=== PATIENT | male | born 1985 | race Caucasian/White ===

== ENCOUNTER 2019-01-03 09:19 | Emergency (ER) | payer OTHER ==
[2019-01-03 10:13] LABS: Mean Corpuscular HGB CONC 33.3 g/dL (32.0-36.0); Mean Corpuscular Hemoglobin 30.9 pg (27.0-31.0); Mean Corpuscular Volume 92.7 fL (78.0-98.0); Mean Platelet Volume 8.5 fL (7.4-10.4); Platelet Count 213 thou/uL (130-400); RBC Distribution Width 12.7 % (11.5-14.5); Red Blood Cell (RBC) Count 4.53 mill/uL (4.70-6.10); White Blood Cell (WBC) Count 5.5 thou/uL (4.8-10.8)
--- NOTE | 2019-01-03 10:17 | RAD ---
Exam: Chest one view HISTORY:Chest pain Comparison: No FINDINGS: Cardiac silhouette: Normal Aorta: Unremarkable Pulmonary vessels: Normal Costophrenic angles: Clear LUNGS: No masses or consolidation. Pneumothorax: None Osseous abnormalities: None IMPRESSION: No acute cardiopulmonary process.
[2019-01-03 10:27] LABS: ALT (SGPT) 35 U/L (8-55); AST (SGOT) 21 U/L (5-34); Albumin 4.3 g/dL (3.5-5.0); Alkaline Phosphatase 42 U/L (40-110); Anion Gap 9 mmol/L (10-20); BUN (Urea Nitrogen) 12 mg/dL (8.9-20.6); Bilirubin, Total 0.2 mg/dL (0.2-1.2); Calc. Creatinine Clearance 0 mL/min (70-130); Calcium 9.2 mg/dL (7.8-10.44); Carbon Dioxide 28 mmol/L (22-29); Chloride 106 mmol/L (98-107); Estimated GFR-MDRD Greater than 90; Globulin 2.1 g/dL (2.4-3.5); Glucose 82 mg/dL (70-105); Lipase 56 U/L (8-78); Potassium 4.3 mmol/L (3.5-5.1); Protein, Total 6.4 g/dL (6.0-8.3); Sodium 139 mmol/L (136-145)
[2019-01-03 10:37] LABS: Band 2 % (5-11); Eosinophils 1 % (0-10); Lymphocytes 22 % (21-51); MDiff Complete? YES; Monocytes 3 % (0-10); Neutrophil 70 % (42-75); RBC Morphology Normal; Reactive Lymphocytes 2 % (0-10)
[2019-01-03 13:33] LABS: CKMB 0.7 ng/mL (0-6.6)
[2019-01-03] MEDS ORDERED: Nitroglycerin 2% Ointment 1 INCH/1 GM Packet ONE (17:18)
[2019-01-03] MEDS ORDERED: Enoxaparin Sodium 100 MG/ML SYRINGE ONE (17:18)
== END 2019-01-04 02:21 | disposition short-term general hospital (02) ==
LOC: ERS 09:19
DX: R07.9 Chest pain, unspecified (principal)
CPT/HCPCS: 36415; 71045; 80053; 82553; 83690; 84484; 85025; 85379; 93005; J1650

== ENCOUNTER 2019-01-08 21:47 | Emergency (ER) | payer OTHER ==
--- NOTE | 2019-01-08 22:22 | RAD ---
PORTABLE CHEST ONE VIEW: 01/08/2019 10:04 p.m. HISTORY: Chest pain. COMPARISON: 01/03/2019 FINDINGS: The heart size is normal. The lungs are expanded without focal areas of consolidation, pneumothoraces or pleural effusions. There is air under the right hemidiaphragm which is likely within the colon. If there is concern for free air, a dedicated CT scan of the abdomen would be helpful. POS: OFF
[2019-01-08 22:23] LABS: #Basophils 0.1 thou/uL (0.0-0.2); #Eosinphils 0.1 thou/uL (0.0-0.7); #Lymphocytes 2.3 thou/uL (1.20-3.40); #Monocytes 0.4 thou/uL (0.11-0.59); #Neutrophils 2.1 thou/uL (1.40-6.50); %Basophils 1.5 % (0.0-1.0); %Eosinophils 1.6 % (0.0-10.0); %Lymphocytes 46.3 % (21.0-51.0); %Monocytes 8.6 % (0.0-10.0); Hemoglobin 13.2 g/dL (14.0-18.0); Mean Corpuscular HGB CONC 33.3 g/dL (32.0-36.0); Mean Corpuscular Hemoglobin 30.7 pg (27.0-31.0); Mean Corpuscular Volume 92.2 fL (78.0-98.0); Mean Platelet Volume 8.7 fL (7.4-10.4); Platelet Count 221 thou/uL (130-400); RBC Distribution Width 12.5 % (11.5-14.5); Red Blood Cell (RBC) Count 4.32 mill/uL (4.70-6.10)
[2019-01-08 22:44] LABS: ALT (SGPT) 44 U/L (8-55); AST (SGOT) 24 U/L (5-34); Albumin 4.3 g/dL (3.5-5.0); Alkaline Phosphatase 40 U/L (40-110); Anion Gap 10 mmol/L (10-20); BUN (Urea Nitrogen) 12 mg/dL (8.9-20.6); Bilirubin, Total 0.3 mg/dL (0.2-1.2); Calc. Creatinine Clearance 0 mL/min (70-130); Calcium 9.1 mg/dL (7.8-10.44); Carbon Dioxide 29 mmol/L (22-29); Chloride 104 mmol/L (98-107); Estimated GFR-MDRD Greater than 90; Globulin 2.4 g/dL (2.4-3.5); Glucose 83 mg/dL (70-105); Potassium 3.8 mmol/L (3.5-5.1); Protein, Total 6.7 g/dL (6.0-8.3); Sodium 139 mmol/L (136-145)
[2019-01-09] MEDS ORDERED: Morphine 2 MG/ML SYRINGE ONE (01:13)
[2019-01-09] MEDS ORDERED: Ondansetron PF 4 MG/2 ML Vial ONE (01:13)
== END 2019-01-09 02:21 ==
LOC: EEVIPCON 21:47 → ERS 21:47
DX: R07.9 Chest pain, unspecified (principal); F20.9 Schizophrenia, unspecified
CPT/HCPCS: 36415; 71045; 80053; 84484; 85025; 93005; 96374; 96375; J2270; J2405

== ENCOUNTER 2019-03-17 19:45 | Observation (INO) | payer OTHER ==
[~2019-03-17 19:45] MED LIST: Iopamidol-370 76% 500 ML 1 ML ONE
[2019-03-17] MEDS ORDERED: Aspirin Chewable 81 MG TAB ONE (20:09)
[2019-03-17 20:28] LABS: #Basophils 0.1 thou/uL (0.0-0.2); #Lymphocytes 2.3 thou/uL (1.20-3.40); #Monocytes 0.5 thou/uL (0.11-0.59); #Neutrophils 2.4 thou/uL (1.40-6.50); %Basophils 1.1 % (0.0-1.0); %Eosinophils 0.6 % (0.0-10.0); %Lymphocytes 43.5 % (21.0-51.0); %Monocytes 9.5 % (0.0-10.0); %Neutrophils 45.4 % (42.0-75.0); Hemoglobin 14.6 g/dL (14.0-18.0); Mean Corpuscular HGB CONC 32.6 g/dL (32.0-36.0); Mean Corpuscular Hemoglobin 30.7 pg (27.0-31.0); Mean Corpuscular Volume 94.2 fL (78.0-98.0); Mean Platelet Volume 8.6 fL (7.4-10.4); Platelet Count 310 thou/uL (130-400); RBC Distribution Width 12.8 % (11.5-14.5); Red Blood Cell (RBC) Count 4.74 mill/uL (4.70-6.10); White Blood Cell (WBC) Count 5.3 thou/uL (4.8-10.8)
--- NOTE | 2019-03-17 20:37 | RAD ---
Chest AP view INDICATION: Chest pain COMPARISON: January 08, 2019 FINDINGS: Lungs:The lungs are clear Cardiac silhouette:The cardiomediastinal silhouette appears within normal limits. Pulmonary vasculature:Normal Pleural spaces:No pleural effusion or pneumothorax is demonstrated. Upper abdomen:No abnormality seen. Osseous structures: No acute osseous abnormality. Additional findings:None. IMPRESSION: No acute cardiopulmonary abnormality.
[2019-03-17 20:47] LABS: ALT (SGPT) 60 U/L (8-55); AST (SGOT) 22 U/L (5-34); Albumin 4.4 g/dL (3.5-5.0); Alkaline Phosphatase 41 U/L (40-110); Anion Gap 11 mmol/L (10-20); BUN (Urea Nitrogen) 14 mg/dL (8.9-20.6); Bilirubin, Total 0.3 mg/dL (0.2-1.2); Calc. Creatinine Clearance 0 mL/min (70-130); Calcium 9.1 mg/dL (7.8-10.44); Carbon Dioxide 28 mmol/L (22-29); Chloride 105 mmol/L (98-107); Estimated GFR-MDRD Greater than 90; Globulin 2.6 g/dL (2.4-3.5); Glucose 83 mg/dL (70-105); Potassium 4.5 mmol/L (3.5-5.1); Sodium 139 mmol/L (136-145)
--- NOTE | 2019-03-17 20:52 | CT ---
CT ANGIOGRAM OF BRAIN WITH AND WITHOUT CONTRAST: DATE: 03/17/2019 8:20 PM HISTORY: 33-year-old male with bipolar disorder and schizophrenia with dizziness and double vision COMPARISON: None. TECHNIQUE: Noncontrast brain CT performed. Iodinated IV contrast injected. Bolus chasing technique scan performed through the head. Coronal and sagittal 3-D MIP reconstructions. FINDINGS: NONCONTRAST CT OF BRAIN: Hemorrhage: None Ishemia/Infarction: None. Midline Shift: None. Hydrocephalus: None. Skull and Extracranial Soft tissues: There is complete opacification of the left maxillary sinus. CTA OF THE BRAIN: Right ICA: Patent. Right MCA: Patent. Right SRUTHI: Patent. ACOM: There is a 1.8 mm aneurysm off the inferior aspect of the anterior communicating artery on ariel ge 40 of the coronal series and image 78 and 77 of the axial series. Left ICA: Patent. Left MCA: Patent. Left SRUTHI: Patent. PCOMs: Patent. Vertebral arteries: Patent. Basilar Artery: Patent. director clinical applications: Patent. Incidentals: No abnormal enhancement1 IMPRESSION: No acute intracranial abnormality. No hemodynamically significant stenosis or occlusion. Incidental 1.8 mm aneurysm off the anterior communicating artery. Complete opacification of the left maxillary sinus.
[2019-03-18] MEDS ORDERED: Ondansetron PF 4 MG/2 ML Vial IVP PRN (01:28)
[2019-03-18] MEDS ORDERED: Ondansetron ODT 4 MG TAB PO PRN (01:28)
[2019-03-18] MEDS ORDERED: Calcium Carbonate 500 MG ChewTAB PO PRN (01:28)
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
[2019-03-18 02:33] VITALS: BMI 35.8
[2019-03-18 04:12] LABS: Carbamazepine-Tegretol 9.1 ug/mL (4.0-12.0)
[2019-03-18] MEDS: Meclizine HCl 25 MG TAB PO SCH ×3 (05:29→22:07)
[2019-03-18] MEDS: Nitroglycerin 0.4 MG TAB (25 Tab Bottle) PO PRN ×4 (08:29→22:11)
[2019-03-18] MEDS: Acetaminophen 325 MG TAB PO PRN (08:29)
[2019-03-18] MEDS: carBAMazepine 200 MG TAB PO SCH (09:07)
[2019-03-18] MEDS: Aspirin 81 mg Enteric Coated Tablet PO SCH (09:07)
[2019-03-18] MEDS ORDERED: Morphine 4 MG/ML VIAL IV SCH (10:00)
[2019-03-18] MEDS ORDERED: Scopolamine 1.5 mg/72 hour Patch TD SCH ×2 (10:00→17:30)
[2019-03-18] MEDS ORDERED: Ketorolac Tromethamine 30 MG/ML VIAL IVP SCH (12:45)
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
--- NOTE | 2019-03-18 14:37 | PDOC.HOSPP ---
- Subjective Encounter Date: 03/18/19 Encounter Time: 10:00 Subjective: Pt seen for followup re; chest pain. c/o L sided chest pain, vertigo. - Objective Vital Signs & Weight: Vital Signs (12 hours) Temp Pulse Resp BP Pulse Ox 03/18/19 09:00 97.5 F L 74 15 124/83 94 L 03/18/19 06:29 78 18 121/79 96 03/18/19 03:18 97.8 F 88 20 112/69 93 L Weight Weight 242 lb 12.8 oz I&O: 03/17/19 03/18/19 03/19/19 06:59 06:59 06:59 Intake Total 350 1 Balance 350 1 Result Diagrams: 03/17/19 20:20 03/17/19 20:20 Additional Labs: Labs and MARs reviewed by me EKG Reviewed by me: Yes (Tele; NSR) Hospitalist ROS - Review of Systems Constitutional: denies: fever, chills, sweats, weakness, malaise Respiratory: denies: cough, shortness of breath, SOB with excertion, pleuritic pain, wheezing Cardiovascular: reports: chest pain. denies: palpitations, orthopnea, paroxysmal noc. dyspnea, edema, light headedness Gastrointestinal: denies: nausea, vomiting, abdominal pain, diarrhea, constipation, melena, hematochezia Genitourinary: denies: dysuria, frequency, incontinence, hematuria, retention Skin: denies: rash, lesions, josephine, bruising Neurological: reports: other (vertigo) - Medication Medications: Active Medications Generic Name Dose Route Start Last Admin Trade Name Garoq PRN Reason Stop Dose Admin Acetaminophen 650 mg 03/18/19 01:28 03/18/19 08:29 Tylenol PO 650 mg Q4H PRN Administration Headache/Fever/Mild Pain (1-3) Aspirin 81 mg 03/18/19 09:00 03/18/19 09:07 Ecotrin PO 81 mg DAILY CLEMENCIA Administration Carbamazepine 200 mg 03/18/19 08:00 03/18/19 09:07 Tegretol PO 200 mg QAM-WM CLEMENCIA Administration Ketorolac Tromethamine 30 mg 03/18/19 12:45 03/18/19 13:32 Toradol IVP 03/23/19 14:45 30 mg NOW CLEMENCIA Administration Meclizine HCl 25 mg 03/18/19 06:00 03/18/19 13:33 Antivert PO 25 mg Q8HR CLEMENCIA Administration Nitroglycerin 0.4 mg 03/18/19 06:33 03/18/19 09:08 Nitrostat PO 0.4 mg Q5MIN PRN Administration Chest Pain Scopolamine 1.5 mg 03/18/19 10:00 03/18/19 10:45 Transderm Scop TD 1.5 mg Q3D CLEMENCIA Administration Sodium Chloride 10 ml 03/18/19 01:28 03/18/19 09:08 Flush - Normal Saline IVF 10 ml PRN PRN Administration Saline Flush Venlafaxine HCl 75 mg 03/18/19 09:00 03/18/19 09:07 Effexor PO 75 mg DAILY CLEMENCIA Administration - Exam General - other findings: Obese Eye: anicteric sclera ENT: moist mucosa Neck: supple, symmetric, no JVD, no thyromegaly, no lymphadenopathy Heart: RRR, no gallops, no rubs, normal peripheral pulses Respiratory: CTAB, no wheezes, no rales, no ronchi Gastrointestinal: soft, non-tender, non-distended, normal bowel sounds Extremities: no edema Neurological: cranial nerve grossly intact Psychiatric: normal affect, normal behavior, oriented to place, oriented to time Hosp A/P (1) Chest pain Code(s): R07.9 - CHEST PAIN, UNSPECIFIED Status: Acute (2) Vertigo Code(s): R42 - DIZZINESS AND GIDDINESS Status: Acute (3) Anxiety Code(s): F41.9 - ANXIETY DISORDER, UNSPECIFIED Status: Chronic (4) Bipolar disorder Code(s): F31.9 - BIPOLAR DISORDER, UNSPECIFIED Status: Chronic - Plan MRI brain pending. Stress test. d-dimer negative. Continue tegretol and venlafaxine.
--- NOTE | 2019-03-18 16:53 | MRI ---
MRI Brain WO Con: 03/18/2019 12:00 AM CLINICAL HISTORY: 33-year-old male with dizziness. TECHNIQUE: Multiplanar, multisequence images were obtained of the brain. COMPARISON: CTA of the head with and without contrast dated 03/17/2019 FINDINGS: Extra axial spaces: Normal in size and morphology for the patient's age. Hemorrhage: None. Ventricular system: Normal in size and morphology for the patient's age. Basal cisterns: Normal. Cerebral parenchyma: Normal. Midline shift: None. Cerebellum: Normal. Brainstem: Normal. OTHER: Calvarium: Normal. Vascular system: Appropriate flow voids within the major intracranial vessels. Visualized Paranasal sinuses: Complete opacification of the left maxillary sinus. Visualized Orbits: Normal. Visualized upper cervical spine: Normal. Sella and skull base: Normal. IMPRESSION: 1. No acute intracanal abnormality. 2. Complete opacification of the left maxillary sinus.
[2019-03-18] MEDS ORDERED: Atorvastatin Calcium 40 MG TAB PO SCH (21:00)
[2019-03-18] MEDS ORDERED: Enoxaparin Sodium 40 MG/0.4 ML SYRINGE SC SCH (21:00)
[2019-03-19] MEDS ORDERED: Ketorolac Tromethamine 30 MG/ML VIAL IVP SCH (00:15)
[2019-03-19 00:56] LABS: Troponin I 0.022 ng/mL (< 0.028)
[2019-03-19] MEDS: Meclizine HCl 25 MG TAB PO SCH ×2 (06:00→15:25)
[2019-03-19] MEDS: carBAMazepine 200 MG TAB PO SCH (07:44)
[2019-03-19] MEDS: Aspirin 81 mg Enteric Coated Tablet PO SCH (07:44)
[2019-03-19] MEDS ORDERED: ADENOSINE 60 MG/20 ML VIAL ONE (12:14)
[2019-03-19 12:52] VITALS: TEMP 97.5
--- NOTE | 2019-03-19 14:26 | NM ---
CARDIAC SPECT: CLINICAL HISTORY: 33-year-old male with chest pain. TECHNIQUE: A myocardial perfusion scan was performed using the single isotope two day protocol with 32 mCi techn etium-99m sestamibi injected intravenously for both stress and rest images. Pharmacologic stress with Adenosine was monitored and interpreted by Michael Head NP. FINDINGS: Homogeneous tracer distribution is seen in the myocardial segments on stress and rest images without fixed or reversible defects. GATED SPECT LVEF: 55%. WALL MOTION EXAM: Normal. IMPRESSION: Normal exam. POS: OFF
[2019-03-19] MEDS: Acetaminophen 325 MG TAB PO PRN (15:25)
[2019-03-19 16:00] VITALS: BP 123/78
--- NOTE | 2019-03-20 00:15 | DIS ---
DATE OF ADMISSION: 03/17/2019 DATE OF DISCHARGE: 03/19/2019 PRIMARY CARE PROVIDER: Unknown. DISCHARGE DIAGNOSES: 1. Chest pain. 2. Chest pain, most likely secondary to musculoskeletal etiology. 3. Dizziness. CONDITION OF PATIENT ON THE DAY OF DISCHARGE: Stable. I assessed Mr. Hopkins on the day of discharge. He does not have any new complaints. Vital signs are stable. S1 and S2 are heard, regular. Lungs are clear to auscultation bilaterally. CONSULTATIONS DURING THIS HOSPITALIZATION: Neurology, Dr. George. POST-ACUTE CARE FOLLOWUP: With primary care provider in 3 days. The patient is also advised to seek ENT opinion for dizziness as outpatient and Neurosurgery opinion for intracranial aneurysm. DIET: Heart healthy. ACTIVITY: Activity as tolerated. HOSPITAL COURSE: Mr. Hopkins is a pleasant 33-year-old gentleman who was admitted to [facility] for dizziness and chest pain. Pulmonary embolism was ruled out with negative D-dimer. A 2D echocardiogram showed left ventricular ejection fraction of 50% to 55%, mild mitral regurgitation, and mild tricuspid regurgitation. He also had nuclear stress test, which was normal, left ventricular ejection fraction of 55%. MRI of the brain did not show any acute intracranial abnormality. He had complete opacification of the left maxillary sinus. He is being discharged back to [facility] in a stable condition. He has been advised to take p.r.n. meclizine for dizziness. Many thanks for allowing me to participate in your patient's care. Please feel free to contact me with any questions or concerns. DISCHARGE DESTINATION: [facility]. Job ID: [id number]
--- NOTE | 2019-03-20 21:07 | EKG ---
Test Reason : Blood Pressure : / mmHG Vent. Rate : 074 BPM Atrial Rate : 074 BPM P-R Int : 162 ms QRS Dur : 094 ms QT Int : 378 ms P-R-T Axes : 056 030 050 degrees QTc Int : 419 ms Normal sinus rhythm Normal ECG When compared with ECG of 17-MAR-2019 19:54, (Unconfirmed) No significant change was found Confirmed by Giuliana ROD ([id number]) on 03/20/2019 9:07:03 PM Referred By: CRESCENCIO Confirmed By:Giuliana ROD
== END 2019-03-19 16:45 ==
LOC: ERS 19:45 → 2SE 22:27
PROVIDERS: ADMIT Internal Medicine; ATTEND Internal Medicine
DX: R07.9 Chest pain, unspecified (principal); R42 Dizziness and giddiness; F41.9 Anxiety disorder, unspecified; F31.9 Bipolar disorder, unspecified; Z79.899 Other long term (current) drug therapy
CPT/HCPCS: 36415; 70496; 70551; 71045; 78452; 80053; 80061; 80156; 82607; 82746; 83690; 84484; 85025; 85379; 93005; 93010; 93017; 93306; 94760; 96372; 96374; 96375; 96376; A9500; G0378; J0153; J1650; J1885; J2270; J8597; Q9967

== ENCOUNTER 2019-04-26 21:23 | Emergency (ER) | payer OTHER ==
[2019-04-26 22:05] LABS: #Basophils 0.1 thou/uL (0.0-0.2); #Eosinphils 0.2 thou/uL (0.0-0.7); #Lymphocytes 2.2 thou/uL (1.20-3.40); #Monocytes 0.5 thou/uL (0.11-0.59); #Neutrophils 3.1 thou/uL (1.40-6.50); %Basophils 1.1 % (0.0-1.0); %Eosinophils 3.4 % (0.0-10.0); %Lymphocytes 35.8 % (21.0-51.0); %Neutrophils 50.8 % (42.0-75.0); Hemoglobin 12.7 g/dL (14.0-18.0); Mean Corpuscular HGB CONC 33.4 g/dL (32.0-36.0); Mean Corpuscular Hemoglobin 31.1 pg (27.0-31.0); Mean Corpuscular Volume 93.1 fL (78.0-98.0); Mean Platelet Volume 8.4 fL (7.4-10.4); Platelet Count 247 thou/uL (130-400); RBC Distribution Width 12.8 % (11.5-14.5); Red Blood Cell (RBC) Count 4.07 mill/uL (4.70-6.10)
[2019-04-26 22:19] LABS: Carbamazepine-Tegretol 9.9 ug/mL (4.0-12.0)
[2019-04-26 22:25] LABS: ALT (SGPT) 32 U/L (8-55); AST (SGOT) 29 U/L (5-34); Albumin 4.1 g/dL (3.5-5.0); Alkaline Phosphatase 40 U/L (40-110); Anion Gap 12 mmol/L (10-20); BUN (Urea Nitrogen) 11 mg/dL (8.9-20.6); Bilirubin, Total 0.3 mg/dL (0.2-1.2); Calc. Creatinine Clearance 0 mL/min (70-130); Carbon Dioxide 24 mmol/L (22-29); Chloride 108 mmol/L (98-107); Estimated GFR-MDRD Greater than 90; Globulin 2.3 g/dL (2.4-3.5); Glucose 93 mg/dL (70-105); Potassium 3.7 mmol/L (3.5-5.1); Protein, Total 6.4 g/dL (6.0-8.3); Sodium 140 mmol/L (136-145)
--- NOTE | 2019-04-26 22:39 | CT ---
CT Brain WO Con HISTORY: Seizure. COMPARISON: MRI study of 03/18/2019. FINDINGS: The ventricular and cisternal system is within normal limits. There are no signs of intrace rebral hemorrhage or extra-axial fluid collections. There is complete opacification of the partially visualized left maxillary sinus. IMPRESSION: No acute intracranial abnormalities.
[2019-04-26] MEDS ORDERED: levETIRAcetam 500 MG TAB PO SCH (23:00)
[2019-04-27] MEDS ORDERED: levETIRAcetam In NaCl (Iso-Os) 1,000 MG in Premix Bag 1 BAG IVPB SCH (09:00)
== END 2019-04-26 23:11 ==
LOC: ERS 21:23
DX: G40.909 Epilepsy, unspecified, not intractable, without status epilepticus (principal); F31.9 Bipolar disorder, unspecified; F41.9 Anxiety disorder, unspecified; Z79.899 Other long term (current) drug therapy
CPT/HCPCS: 36415; 70450; 80053; 80156; 84146; 85025

== ENCOUNTER 2019-04-27 02:09 | Emergency (ER) | payer OTHER | END 2019-04-27 03:37 | LOC: ERS 02:09 | DX: Z02.89 Encounter for other administrative examinations (principal); F20.9 Schizophrenia, unspecified; F31.9 Bipolar disorder, unspecified; F41.9 Anxiety disorder, unspecified; Z79.899 Other long term (current) drug therapy | CPT/HCPCS: 99283 ==

== ENCOUNTER 2019-04-29 23:59 | Emergency (ER) | payer OTHER ==
[2019-04-30] MEDS ORDERED: Meclizine HCl 25 MG TAB ONE (01:33)
== END 2019-04-30 03:00 ==
LOC: ERS 23:59 → EEVIPCON 23:59 → ERS 04-30 03:00
DX: R42 Dizziness and giddiness (principal); F41.9 Anxiety disorder, unspecified; F20.9 Schizophrenia, unspecified; Z79.899 Other long term (current) drug therapy
CPT/HCPCS: 93005; J8597